=== PATIENT | male | born 1985 | race Caucasian/White ===

== ENCOUNTER 2021-01-25 18:50 | Emergency (ER) | payer OTHER ==
[2021-01-25] MEDS ORDERED: Bacitracin 1 PK ONE ×2 (19:31→19:36)
== END 2021-01-25 19:41 | disposition home or self-care (01) ==
LOC: NAV ERS 18:50
DX: S71.111A Laceration without foreign body, right thigh, initial encounter (principal); W26.0XXA Contact with knife, initial encounter
CPT/HCPCS: 12001